=== PATIENT | male | born 1985 | race Caucasian/White ===

== ENCOUNTER 2018-07-20 09:00 | Emergency (ER) | payer OTHER ==
[2018-07-20 09:15] VITALS: BP 152/89
--- NOTE | 2018-07-20 10:22 | UC ---
Neck Pain HPI - HPI Summary HPI Summary: 32-year-old male comes in with chief complaint of neck pain. Yesterday at work he had a 35 pound bale fall on him. He fell about 4-5 feet and struck him in the back of the neck and head. He was seen here in clinic and had a head CT and cervical spine x-rays both studies were normal. When the patient woke up this morning he had muscle spasm and pain in the neck primarily on the right side. He's been taking ibuprofen and Tylenol which to help some with the pain. He had a headache yesterday he does not have a headache today. No focal neurologic deficits no radiation of the pain down the arms. Has full strength no sensation deficits. Pain the neck is worse with movement of the neck and also movement of the right arm. - History of Current Complaint Chief Complaint: UCBackPain Stated Complaint: WC-RECHECK NECK PAIN Time Seen by Provider: 07/20/18 10:10 Pain Intensity: 5 - Allergies/Home Medications Allergies/Adverse Reactions: Allergies Allergy/AdvReac Type Severity Reaction Status Date / Time amoxicillin [From Augmentin] Allergy Vomiting Verified 07/19/18 09:57 cefaclor [From Ceclor] Allergy Vomiting Verified 07/19/18 09:57 clavulanic acid Allergy Vomiting Verified 07/19/18 09:57 [From Augmentin] PMH/Surg Hx/FS Hx/Imm Hx Previously Healthy: Yes - Surgical History Surgical History: None - Family History Known Family History: Positive: Non-Contributory - Social History Alcohol Use: Occasionally Alcohol Amount: STOPED 2 WEEKS AGO Substance Use Type: None Smoking Status (MU): Current Some Day Smoker Type: Cigarettes Amount Used/How Often: occasional When Did the Patient Quit Smoking/Using Tobacco: APR 2013 Review Of Systems Constitutional: Positive: Negative Skin: Positive: Negative Eyes: Positive: Negative ENT: Positive: Negative Respiratory: Positive: Negative Cardiovascular: Positive: Negative Gastrointestinal: Positive: Negative Musculoskeletal: Positive: Other: - see hpi Neurological: Positive: Negative Psychological: Positive: Negative All Other Systems Reviewed And Are Negative: No Physical Exam Triage Information Reviewed: Yes Appearance: Well-Appearing, Well-Nourished, Pain Distress - mild with neck rom Vital Signs: Initial Vital Signs Temp 97.9 F 07/20/18 09:12 Pulse 95 02/06/19 09:12 Resp 18 07/20/18 09:12 BP 152/89 07/20/18 09:12 Pulse Ox 99 07/20/18 09:12 Vital Signs Reviewed: Yes Eye Exam: Normal Eyes: Positive: Conjunctiva Clear ENT: Positive: TMs normal. Negative: Nasal congestion, Nasal drainage Neck: Positive: Supple, Other: - Neck is tender to palpation in the right posterior lateral aspect to the right of the spinous processes. The muscles feel tight. The tenderness totheupperrighttrapezius. Respiratory: Positive: Lungs clear, Normal breath sounds, No respiratory distress Cardiovascular: Positive: RRR Musculoskeletal: Positive: Other: - Patient is tender to palpation right lateral posterior neck and into the upper right trapezius. Shoulders have full range of motion although there is more pain with motion of the right shoulder. Fingers wrist elbows and shoulders all have full range of motion and full strength. Normal radial pulses no sensation deficits. Neurological Exam: Normal Neurological: Positive: Alert, Muscle Tone Normal Psychological Exam: Normal Psychological: Positive: Age Appropriate Behavior Skin Exam: Normal Neck Pain Course/Dx - Course Course Of Treatment: I reviewed the x-rays from yesterday with the patient. There is no neurologic symptoms today. At this time with the tenderness in the right posterior lateral aspect and no radiation of pain did not get a CT scan. Discussed further treatment with ibuprofen and acetaminophen with the patient. Also discussed using a muscle relaxer which the patient declined. The plan is to have him follow up with occupational medicine if not completely improved. If he worsens he get reevaluated sooner. I wrote for him to return to work with no restrictions on July 22, 2018. - Differential Dx/Diagnosis Provider Diagnosis: Cervical strain Discharge - Sign-Out/Discharge Documenting (check all that apply): Patient Departure All imaging exams completed and their final reports reviewed: No Studies - Discharge Plan Condition: Stable Disposition: HOME Patient Education Materials: Cervical Strain (ED) Forms: *Work Release Referrals: Karen Nava MD [Primary Care Provider] - Oswaldo Gong MD [Medical Doctor] - Additional Instructions: FOLLOW UP WITH YOUR PRIMARY CARE DOCTOR OR OCCUPATIONAL MEDICINE, DR GONG, IF NOT COMPLETELY IMPROVED. GET RECHECKED SOONER WITH ANY WORSENING OF YOUR CONDITION; PAIN, WEAKNESS, NUMBNESS OR QUESTIONS OR CONCERNS. - Billing Disposition and Condition Condition: STABLE Disposition: Home
== END 2018-07-20 10:29 | disposition home or self-care (01) ==
LOC: UCCORT 09:00
DX: S16.1XXA Strain of muscle, fascia and tendon at neck level, initial encounter (principal); F17.210 Nicotine dependence, cigarettes, uncomplicated; Z88.0 Allergy status to penicillin; Z88.1 Allergy status to other antibiotic agents; W20.8XXA Other cause of strike by thrown, projected or falling object, initial encounter; Y92.9 Unspecified place or not applicable; Y99.0 Civilian activity done for income or pay
CPT/HCPCS: 99211; G0463

== ENCOUNTER 2019-01-22 18:00 | Emergency (ER) | payer SELFPAY ==
[2019-01-22] MEDS ORDERED: Tetan/Diph/Pertus SYR(Tdap)* 0.5 ML SYR(BOOSTRIX) use SYR contains LATEX IM ONE (18:13)
[2019-01-22 18:15] VITALS: BP 147/93
[2019-01-22] MEDS ORDERED: Acetaminophen / Codeine* #3 (300 MG/30 MG) TAB PO ONE (18:47)
[2019-01-22] MEDS ORDERED: Ibuprofen TAB* 600 MG PO ONE (18:47)
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
--- NOTE | 2019-01-23 08:53 | UC ---
- Progress Note Progress Note: no fx Course/Dx - Diagnoses Provider Diagnoses: Sprain of right wrist Discharge - Sign-Out/Discharge Documenting (check all that apply): Post-Discharge Follow Up All imaging exams completed and their final reports reviewed: Yes - Discharge Plan Condition: Stable Disposition: HOME Patient Education Materials: Wrist Sprain (ED) Referrals: Riley Galindo MD [Medical Doctor] - Karen Nava MD [Primary Care Provider] - Additional Instructions: 1. Use 400 - 600 mg of ibupfrofen with 1000 mg of tylenol every 8 hours. 2. ice for the next 24 hours then switch to heat and Range of motion exercises. 3. Use the mp and splint for support 4. if not improving in the next week, follow up with orthopedics. - Billing Disposition and Condition Condition: STABLE Disposition: Home
== END 2019-01-22 19:15 | disposition home or self-care (01) ==
LOC: UCCORT 18:00
DX: S63.501A Unspecified sprain of right wrist, initial encounter (principal); X58.XXXA Exposure to other specified factors, initial encounter; Y93.H9 Activity, other involving exterior property and land maintenance, building and construction; Y92.9 Unspecified place or not applicable; F17.210 Nicotine dependence, cigarettes, uncomplicated
CPT/HCPCS: 90471; 90715; 99213; A9270-GY; G0463

== ENCOUNTER 2019-06-01 12:16 | Emergency (ER) | payer SELFPAY ==
--- OUTSIDE RECORDS SUMMARY | 2019-06-01 12:24 | XMS REPORT | Continuity of Care Document ---
:1985 External Reference #:[id number] Author Name Richard Olivares MD Address [address] [place] [address] Care Team Providers Name Role Phone Dorian Patterson MD - Neurological Care Team Information Vacuum Evaporation Operator Surgery Jocy Smith MAJOR GIFTS OFFICER Care Team Information Vacuum Evaporation Operator [phone] Judi Wallace NP - Family Care Team Information Vacuum Evaporation Operator [phone] Richard Olivares MD - Family Medicine Care Team Information Vacuum Evaporation Operator [phone] Problems Active Problems Provider Date Lumbar spondylosis Amanda Vazquez RPAC Onset: 05/03/2017 Note: with disc dx Renal agenesis Amanda Vazquez RPAC Onset: 05/03/2017 Note: Left side Essential hypertension Amanda Vazquez RPAC Onset: 05/03/2017 Cigarette smoker Amanda Vazquez RPAC Onset: 05/03/2017 Dysuria Isaura Hernandez M.D. 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 Karen Nava MD Onset: 02/22/2018 lumbar intervertebral disc Renal agenesis and dysgenesis Karen Nava MD Onset: 02/22/2018 Gastro-esophageal reflux disease with Karen Nava MD Onset: 02/22/2018 esophagitis Acute sinusitis Karen Nava MD Onset: 11/10/2017 Acute pharyngitis Karen Nava MD Onset: 11/10/2017 Social History Type Date Description Comments Sex Unknown Tobacco Use Start: Unknown Light tobacco smoker (10 or fewer cigarettes/day) ETOH Use Currently consumes alcohol socially Tobacco Use Start: Unknown End: Patient is a former smoker Recreational Drug Use Denies Drug Use Tobacco Use Start: Unknown Patient is a current ~ 1 pack per week smoker, smokes some 07-04-2018 days Smoking Status Reviewed: 05/15/19 Patient is a current ~ 1 pack per week smoker, smokes some 07-04-2018 days Allergies, Adverse Reactions, Alerts Active Allergies Reaction Severity Comments Date Ceclor Nausea and Vomiting 07/07/2016 Augmentin Nausea and Vomiting vomiting,nausea 07/07/2016 Cefaclor 07/25/2017 Clavulanic Acid 07/25/2017 Medications Active Medications SIG Qnty Indications Ordering Provider Date Diclofenac Potassium 1 tab by mouth 60tabs M54.6 Richard Olivares, 2018 50mg three times a MD Tablets day Amlodipine take one capsule 30caps I10 Richard Olivares, 07/04/2018 Besylate/Benazepril once a day MD Hydrochloride 2.5-10mg Capsules Immunizations Description No Information Available Vital Signs Date Vital Result Comment 05/15/2019 10:36am BP Systolic Sitting Left Arm 134 mmHg BP Diastolic Sitting Left Arm 104 mmHg Body Temperature 99.0 F Heart Rate 99 /min Respiratory Rate 18 /min Height 71 inches 5'11" Weight 242.00 lb with boots BMI (Body Mass Index) 33.7 kg/m2 BSA (Body Surface Area) 2.29 m2 [place] body weight in kilograms 78 kg O2 % BldC Oximetry 97 % Ra 08/16/2018 8:56am BP Systolic Sitting Left Arm 132 mmHg BP Diastolic Sitting Left Arm 88 mmHg Body Temperature 98.4 F Heart Rate 98 /min Respiratory Rate 20 /min Height 71 inches 5'11" Weight 238.00 lb with boots BMI (Body Mass Index) 33.2 kg/m2 BSA (Body Surface Area) 2.27 m2 [place] body weight in kilograms 78 kg O2 % BldC Oximetry 97 % Ra Results Description No Information Available Procedures Description No Information Available Medical Devices Description No Information Available Encounters Type Date Location Provider Dx Diagnosis Office Visit 05/15/2019 Primary Care Richard Olivares M54.6 Pain in thoracic 10:20a Office spine M51.17 Intvrt disc disorders w radiculopathy, lumbosacral region I10 Essential (primary) hypertension Assessments Date Code Description Provider 05/15/2019 M54.6 Pain in thoracic spine Richard Olivares MD 05/15/2019 M51.17 Intervertebral disc disorders with Richard Olivares MD radiculopathy, lumbosacral region 05/15/2019 I10 Essential (primary) hypertension Richard Olivares MD Plan of Treatment Future Appointment(s):07/17/2019 8:00 am - Richard Olivares MD at [facility] [id number]/15/2019 - Richard Olivares, MDM54.6 Pain in thoracic spineNew Medication: Diclofenac Potassium 50 mg - 1 tab by mouth three times a dayM51.17 Intervertebral disc disorders with radiculopathy, lumbosacral regionNew Therapy: Physical [id number] Essential (primary) hypertension Functional Status Functional Condition Comment Date Status Independent with all ADL's Active Mental Status Description No Information Available Referrals Description No Information Available
--- OUTSIDE RECORDS SUMMARY | 2019-06-01 12:24 | XMS REPORT | Continuity of Care Document ---
:1985 External Reference #:[id number] Author Name Richard Olivares MD Address [address] [facility] [place] [address] Care Team Providers Name Role Phone Dorian Patterson MD - Neurological Care Team Information Truck Driver Teamster Surgery Jocy Smith DESK EDITOR Care Team Information Truck Driver Teamster [phone] Judi Wallace NP - Family Care Team Information Truck Driver Teamster Richard Olivares MD - Family Medicine Care Team Information Truck Driver Teamster Problems Active Problems Provider Date Lumbar spondylosis [...] kg/m2 BSA (Body Surface Area) 2.29 m2 [place] body weight in kilograms 78 kg O2 % BldC Oximetry 97 % Ra 08/16/2018 8:56am BP Systolic Sitting Left Arm 132 mmHg BP Diastolic Sitting Left Arm 88 mmHg Body Temperature 98.4 F Heart Rate 98 /min Respiratory Rate 20 /min Height 71 inches 5'11" Weight 238.00 lb with boots BMI (Body Mass Index) 33.2 kg/m2 BSA (Body Surface Area) 2.27 m2 [place] body weight in kilograms 78 kg O2 % BldC Oximetry 97 % Ra Results Test Acquired Date Facility Test Result H/L Range Note CBC 11/14/2018 [facility] White Blood 5.2 K/uL Normal 3.4-10.5 1 W/Automated [address] Count Diff [place], [place] [address] [phone] Red Blood Count 5.43 M/uL Normal 4.20-5.80 Hemoglobin 16.3 gm/dL Normal 12.8-17.0 Hematocrit 47.5 % Normal 38.0-48.0 Mean Cell Volume 87.5 fl Normal 80.0-96.0 Mean Corpuscular HGB 30.0 pg Normal 27.0-33.0 Mean Corpuscular HGB Conc 34.3 g/dL Normal 31.7-36.0 Platelet Count 355 K/uL Normal 155-360 Red Cell Distri Width SD 38.1 fl Normal 36-51 Red Cell Distri Width %CV 11.9 % Normal 11.6-15.8 Mean Platelet Volume 9.4 fl Normal 6.6-10.6 Neut% 57.0 % Normal 33.0-73.0 Lymph % 29.0 % Normal 20.0-42.0 [place] % 9.7 % Normal 0.0-10.0 Eo% 2.7 % Normal 0.0-6.6 Bas% 1.2 % High 0.0-1.1 Immature Grans 0.4 % Normal 0.0-5.0 NRBC % 0.0 /100WBC < 10/ 100 WBC Neut# 2.95 K/uL Normal 1.8-7.0 Lymph # 1.50 K/uL Normal 1.0-4.0 [place] # 0.50 K/uL Normal 0.0-0.8 Eos # 0.14 K/uL Normal 0.0-0.5 Baso # 0.06 K/uL Normal 0.0-0.1 Immature Grans Absolute 0.02 K/uL NRBC # 0.00 K/uL Ua RFX Micro & Culture 11/14/2018 [facility] Urine Color YELLOW Yellow II [address] [place] [address] [phone] Urine Clarity CLEAR Clear Urine Glucose - Dipstick NEGATIVE mg/dL Negative Urine Bilirubin - Dipstick NEGATIVE Negative Urine Ketone NEGATIVE mg/dL Negative Urine Specific [place] <= 1.005 Low 1.010-1.030 Urine Blood TRACE Negative Urine PH 7.0 Normal 6.5-7.5 Urine Protein - Dipstick NEGATIVE mg/dL Negative Urine Urobilinogen - Dipstick 0.2 E.U./dL Normal 0.2-1.0 Urine Nitrite - Dipstick NEGATIVE Negative Urine Leuk Esterase NEGATIVE Negative Urine RBC 0-2 rbc/hpf 0-2 Urine WBC NONE SEEN wbc/hpf 0-7 Urine Epithelial Cells VERY FEW /lpf None Seen Urine Bacteria VERY FEW None Seen Source: URINE, CLEAN CAT <SEE NOTE> 2 1 RIGHT SIDE,HAND AND LEG TINGLY,DIZZY 2 URINE, CLEAN CATCH Procedures Description No Information Available Medical Devices Description No Information Available Encounters Type Date Location Provider Dx Diagnosis Office Visit 05/15/2019 Primary Care Richard Olivares M54.6 Pain in thoracic 10:20a Office MD spine M51.17 Intvrt disc disorders w radiculopathy, lumbosacral region I10 Essential (primary) hypertension Assessments Date Code Description Provider 05/15/2019 M54.6 Pain in thoracic spine Richard Olivares MD 05/15/2019 M51.17 Intervertebral disc disorders with Richard Olivaers MD radiculopathy, lumbosacral region 05/15/2019 I10 Essential (primary) hypertension Richard Olivares MD Plan of Treatment Future Appointment(s):07/17/2019 8:00 am - Richard Olivares MD at [facility] [id number]/15/2019 - Richard Olivares, MDM54.6 Pain in thoracic spineNew Medication: Diclofenac Potassium 50 mg - 1 tab by mouth three times a dayM51.17 Intervertebral disc disorders with radiculopathy, lumbosacral regionNew Therapy: Physical [id number] Essential (primary) hypertension Functional Status Functional Condition Comment Date Status Independent with all ADL's Active Mental Status Description No Information Available Referrals Description No Information Available
[2019-06-01 12:40] VITALS: BP 150/93
--- NOTE | 2019-06-01 13:25 | UC ---
Abdominal Pain Male HPI - HPI Summary HPI Summary: Pt presents with c/o right side flank pain, dysuria. RLQ pain, nausea, lightheadedness X 3 days. 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 Pt denies hematuria and is concerned for kidney stone. - History of Current Complaint Chief Complaint: UCGeneralIllness Stated Complaint: KIDNEY PAIN/LOW BACK PAIN Time Seen by Provider: 06/01/19 13:05 Hx Obtained From: Patient Onset/Duration: Sudden Onset, Lasting Days, Still Present, Worse Since - onset Timing: Intermittent Episodes Lasting: Severity Initially: Moderate Severity Currently: Severe Pain Intensity: 9 Pain Scale Used: 0-10 Numeric Location: Discrete At: RLQ Radiates: Yes Radiates to: Flank Character: Burning, Colicy, Sharp Aggravating Factor(s): Movement Alleviating Factor(s): Nothing Associated Signs And Symptoms: Positive: Urinary Symptoms, Decreased Appetite - Risk Factors Testicular Torsion: Negative Cardiac Risk Factors: Negative - Allergies/Home Medications Allergies/Adverse Reactions: Allergies Allergy/AdvReac Type Severity Reaction Status Date / Time cefaclor [From Ceclor] Allergy Vomiting Verified 06/01/19 12:34 clavulanic acid Allergy Vomiting Verified 06/01/19 12:34 [From Augmentin] Home Medications: Home Medications Benazepril/Hydrochlorothiazide [Benazepril HCl/Hydrochlor 10-12.5 mg] 1 tab PO DAILY 06/01/19 [History Confirmed 06/01/19] Ibuprofen TAB* [Advil TAB*] 600 mg PO Q6H PRN 06/01/19 [History Confirmed ] amLODIPine TAB* [Norvasc 5 mg TAB*] 5 mg PO DAILY 06/01/19 [History Confirmed ] PMH/Surg Hx/FS Hx/Imm Hx Previously Healthy: Yes - Surgical History Surgical History: None - Family History Known Family History: Positive: Hypertension - Social History Occupation: Employed Full-time Lives: With Family Alcohol Use: Occasionally Alcohol Amount: STOPED 2 WEEKS AGO Substance Use Type: None Smoking Status (MU): Light Every Day Tobacco Smoker Type: Cigarettes Amount Used/How Often: 1/3 PPD Length of Time of Smoking/Using Tobacco: Since Age 18 Have You Smoked in the Last Year: No When Did the Patient Quit Smoking/Using Tobacco: APR 2013 - Immunization History Most Recent Tetanus Shot: 01/22/19 Vaccination Up to Date: Yes Review of Systems All Other Systems Reviewed And Are Negative: Yes Constitutional: Positive: Chills, Fatigue Skin: Positive: Negative Eyes: Positive: Negative ENT: Positive: Negative Respiratory: Positive: Negative Cardiovascular: Positive: Negative Gastrointestinal: Positive: Abdominal Pain, Nausea Genitourinary: Positive: Dysuria, Other - right flank pain Motor: Positive: Negative Neurovascular: Positive: Negative Musculoskeletal: Positive: Negative Neurological: Positive: Negative Psychological: Positive: Negative Is Patient Immunocompromised?: No Physical Exam Triage Information Reviewed: Yes Appearance: Ill-Appearing, Pain Distress Vital Signs: Initial Vital Signs Temp 98.1 F 06/01/19 12:29 Pulse 94 06/01/19 12:29 Resp 18 06/01/19 12:29 BP 150/93 06/01/19 12:29 Pulse Ox 100 06/01/19 12:29 Vital Signs Reviewed: Yes Eye Exam: Normal ENT Exam: Normal Dental Exam: Normal Neck exam: Normal Respiratory Exam: Normal Respiratory: Positive: Normal breath sounds Cardiovascular Exam: Normal Abdomen Description: Positive: CVA Tenderness (R), [place]Bur[place]'s Point Tenderness Bowel Sounds: Positive: Present Musculoskeletal Exam: Normal Neurological Exam: Normal Psychological Exam: Normal Skin Exam: Normal Abd Pain Male Course/Dx - Course Course Of Treatment: I discussed the UA with the pt and recommended pt go to closest er immediately. Pt was asked if he wanted to travel by ambulance but pt declined - Differential Dx/Clinical Impression Differential Diagnosis/HQI/PQRI: Appendicitis, Ureteral Stone Provider Diagnosis: Right flank pain, RLQ abdominal pain Discharge ED - Sign-Out/Discharge Documenting (check all that apply): Patient Departure All imaging exams completed and their final reports reviewed: No Studies - Discharge Plan Condition: Stable Disposition: HOME-RECOMMEND TO ED Patient Education Materials: Abdominal Pain (ED), Flank Pain (ED) Referrals: Karen Nava MD [Primary Care Provider] - - Billing Disposition and Condition Condition: STABLE Disposition: Home-Recommend to ED - Attestation Statements Provider Attestation: Per institutional requirements, I have reviewed the chart, however, I was not consulted specifically or made aware of this patient by the midlevel provider. I did not personally evaluate, interact with , or disposition this patient.
== END 2019-06-01 13:18 | disposition home health service (06) ==
LOC: UCCORT 12:16
DX: R10.31 Right lower quadrant pain (principal); R30.0 Dysuria; R11.0 Nausea; R42 Dizziness and giddiness; F17.210 Nicotine dependence, cigarettes, uncomplicated; R68.83 Chills (without fever); R53.83 Other fatigue; Z88.1 Allergy status to other antibiotic agents
CPT/HCPCS: 81003; 99212; G0463

== ENCOUNTER 2019-06-08 08:14 | Emergency (ER) | payer BC ==
[2019-06-08 08:30] VITALS: BP 143/92
--- NOTE | 2019-06-08 08:58 | UC ---
FLU HPI - HPI Summary HPI Summary: Pt presents with c/o body aches, chills, diarrhea, sore throat, cough, X 4 days. Pt has not gotten a flu vaccine this year states "he never does". - History of Current Complaint Chief Complaint: UCGeneralIllness Stated Complaint: FLU LIKE SYMPTOMS Time Seen by Provider: 06/08/19 08:42 Hx Obtained From: Patient Onset/Duration: Sudden Onset, Lasting Days, Still Present Severity Currently: Moderate Severity Initially: Severe Pain Intensity: 10 Associated Signs & Symptoms: Positive: Fever, Myalgia, Cough, Sore Throat, Nasal Congestion, Diarrhea Related Hx: Possible Flu/Infectious Exposure - Risk Factors Influenza Risk Factors: Negative - Allergy/Home Medications Allergies/Adverse Reactions: Allergies Allergy/AdvReac Type Severity Reaction Status Date / Time cefaclor [From Ceclor] Allergy Vomiting Verified 06/08/19 08:25 clavulanic acid Allergy Vomiting Verified 06/08/19 08:25 [From Augmentin] Home Medications: Home Medications D-Methorphan/PE/Acetaminophen [Daytime Cold-Flu Relief Softgl] 1 dose PO Q4H [History Confirmed 06/08/19] PMH/Surg Hx/FS Hx/Imm Hx Previously Healthy: Yes - Surgical History Surgical History: None - Family History Known Family History: Positive: Hypertension - Social History Occupation: Employed Full-time Lives: With Family Alcohol Use: Occasionally Alcohol Amount: STOPED 2 WEEKS AGO Substance Use Type: None Smoking Status (MU): Light Every Day Tobacco Smoker Type: Cigarettes Amount Used/How Often: 1/3 PPD Length of Time of Smoking/Using Tobacco: Since Age 18 Have You Smoked in the Last Year: No When Did the Patient Quit Smoking/Using Tobacco: APR 2013 - Immunization History Most Recent Tetanus Shot: 01/22/19 Vaccination Up to Date: Yes Review of Systems All Other Systems Reviewed And Are Negative: Yes Constitutional: Positive: Fever, Chills, Fatigue Skin: Positive: Negative Eyes: Positive: Negative ENT: Positive: Sore Throat, Sinus Congestion Respiratory: Positive: Cough Cardiovascular: Positive: Negative Gastrointestinal: Positive: Diarrhea Genitourinary: Positive: Negative Motor: Positive: Negative Neurovascular: Positive: Negative Musculoskeletal: Positive: Myalgia Psychological: Positive: Negative Is Patient Immunocompromised?: No Physical Exam Triage Information Reviewed: Yes Appearance: Ill-Appearing Vital Signs: Initial Vital Signs Temp 97.6 F 06/08/19 08:27 Pulse 99 06/08/19 08:27 Resp 16 06/08/19 08:27 BP 143/92 06/08/19 08:27 Pulse Ox 99 06/08/19 08:27 Vital Signs Reviewed: Yes Eye Exam: Normal ENT: Positive: Nasal congestion Dental Exam: Normal Neck exam: Normal Respiratory Exam: Normal Cardiovascular Exam: Normal Musculoskeletal Exam: Normal Neurological Exam: Normal Psychological Exam: Normal Skin Exam: Normal Flu Course/Dx - Course Course Of Treatment: Pt requested an antibiotic and stated that he thinks he needs one because "he has never felt this sick before" I discussed with pt my assessment of viral syndrome and that an antibiotic would not improve his symptoms and that they may actually make them worse. - Differential Dx/Diagnosis Differential Diagnosis/HQI/PQRI: Influenza, Upper Respiratory Infection Provider Diagnosis: Viral syndrome Discharge ED - Sign-Out/Discharge Documenting (check all that apply): Patient Departure All imaging exams completed and their final reports reviewed: No Studies - negative rapid strep and negative flu. - Discharge Plan Condition: Stable Disposition: HOME Patient Education Materials: Loperamide (By mouth), Viral Syndrome (ED) Referrals: Karen Nava MD [Primary Care Provider] - If Needed - Billing Disposition and Condition Condition: STABLE Disposition: Home - Attestation Statements Provider Attestation: Per institutional requirements, I have reviewed the chart, however, I was not consulted specifically or made aware of this patient by the midlevel provider. I did not personally evaluate, interact with , or disposition this patient.
[2019-06-08 09:08] LABS: Influenza A Molecular NEGATIVE (Negative); Influenza B Molecular NEGATIVE (Negative)
== END 2019-06-08 09:15 | disposition home or self-care (01) ==
LOC: UCCORT 08:14
DX: B34.9 Viral infection, unspecified (principal); J02.9 Acute pharyngitis, unspecified; R19.7 Diarrhea, unspecified; R05 Cough; F17.210 Nicotine dependence, cigarettes, uncomplicated; R09.81 Nasal congestion; Z88.1 Allergy status to other antibiotic agents; Z88.0 Allergy status to penicillin
CPT/HCPCS: 87651; 99211; G0463